=== PATIENT | male | born 1965 | race African-American/Black ===

== ENCOUNTER 2016-12-04 18:22 | Emergency (ER) | payer SELFPAY ==
[~2016-12-04] VITALS: Ht 180.3 cm; Wt 80.0 kg
[2016-12-04] MEDS ORDERED: FOLIC ACID 1 MG, THIAMINE HCL 100 MG, MVI, ADULT NO.1 10 ML in DEXTROSE 5% WATER 1,000 ML IV ONE ×4 (22:30)
[2016-12-04] MEDS ORDERED: KETOROLAC 30MG/ML VIAL IV ONE (22:30)
[2016-12-04 22:49] LABS: BASOPHILS % 1.1 % (0.0-2.0); EOSINOPHILS % 3.6 % (0.0-5.0); HEMOGLOBIN. 12.8 g/dL (14.0-18.0); LYMPHOCYTES % 47.4 % (20.0-50.0); MEAN CORPUSCULAR HEMOGLOBIN 30.5 pg (28.0-32.0); MEAN CORPUSCULAR VOLUME 92.5 fL (80.0-94.0); MEAN PLATELET VOLUME 6.9 fl (7.4-10.4); MONOCYTES % 9.8 % (2.0-8.0); NEUTROPHILS % 38.1 % (40.0-76.0); PLATELET 244 x1000/uL (130-400); RED BLOOD CELL COUNT 4.21 mill/uL (4.7-6.1); RED CELL DISTRIBUTION WIDTH 16.1 % (11.6-14.6); WHITE BLOOD COUNT 6.6 x1000/uL (4.5-11.0)
[2016-12-04 22:54] LABS: CHLORIDE 109 mEq/L (98-107); INDEX HEMOLYSI 1 (1-3); INDEX ICTERIC 1 (1-4); INDEX LIPEMIC 1 (1-3)
[2016-12-04 23:00] LABS: ALANINE AMINOTRANSFERASE 23 IU/L (13-61); ANION GAP 12; CALCIUM 8.2 mg/dL (8.5-10.1); CARBON DIOXIDE 29 mEq/L (21-32); ETHANOL BLOOD 288 mg/dL; UREA NITROGEN BLOOD 9 mg/dL (7-21); eGFR > 60 mL/min (>60)
[2016-12-05 00:37] LABS: CLARITY URINE CLEAR (CLEAR); COLOR URINE YELLOW (YELLOW); GLUCOSE URINE NEGATIVE (NEGATIVE); KETONES URINE NEGATIVE (NEGATIVE); LEUKOCYTE ESTERASE URINE NEGATIVE (NEGATIVE); NITRITE URINE NEGATIVE (NEGATIVE); OCCULT BLOOD URINE NEGATIVE (NEGATIVE); PH URINE 5.5 (4.5-8.0); PROTEIN URINE NEGATIVE (NEGATIVE); SPECIFIC GRAVITY URINE 1.011 (1.005-1.030); UROBILINOGEN URINE 0.2 E.U./dL (0.2-1.0)
[2016-12-05 01:03] LABS: *AMPHETAMINES SCREEN URINE NEGATIVE (NEGATIVE); *BARBITURATES SCREEN URINE NEGATIVE (NEGATIVE); *BENZODIAZEPINES SCREEN URINE NEGATIVE (NEGATIVE); *COCAINE SCREEN URINE NEGATIVE (NEGATIVE); CANNABINOID URINE SCREEN NEGATIVE (NEGATIVE); ECSTASY MDMA SCREEN URINE NEGATIVE (NEGATIVE); METHADONE URINE SCREEN NEGATIVE (NEGATIVE); OPIATES URINE SCREEN NEGATIVE (NEGATIVE); PHENCYCLIDINE URINE SCREEN NEGATIVE (NEGATIVE)
[2016-12-05 05:41] VITALS: BP 147/88
== END 2016-12-05 05:51 | disposition left against medical advice (07) ==
LOC: ER 18:23
DX: F10.120 Alcohol abuse with intoxication, uncomplicated (principal); M25.561 Pain in right knee; M54.5 Low back pain; Y92.480 Sidewalk as the place of occurrence of the external cause; W18.09XA Striking against other object with subsequent fall, initial encounter; Y93.89 Activity, other specified; Y99.8 Other external cause status; Y90.8 Blood alcohol level of 240 mg/100 ml or more
CPT/HCPCS: 36415; 72100; 73560; 80053; 80305; 81003; 85025; 96365; 96366; 96375; 99285; G0482; J1885; J3411; J3490; J7070; Z7610

== ENCOUNTER 2017-05-05 18:58 | Emergency (ER) | payer SELFPAY ==
[~2017-05-05] VITALS: Ht 177.8 cm; Wt 80.0 kg
[2017-05-05] MEDS ORDERED: FOLIC ACID 1 MG, THIAMINE HCL 100 MG, MVI, ADULT NO.1 10 ML in DEXTROSE 5% WATER 1,000 ML IV ONE ×4 (20:15)
[2017-05-05 20:55] LABS: CARBON DIOXIDE 28 mEq/L (21-32); CHLORIDE 107 mEq/L (98-107)
[2017-05-05 20:56] LABS: BASOPHILS % 1.2 % (0.0-2.0); EOSINOPHILS % 4.1 % (0.0-5.0); HEMATOCRIT. 39.6 % (42.0-52.0); HEMOGLOBIN. 13.4 g/dL (14.0-18.0); LYMPHOCYTES % 44.3 % (20.0-50.0); MEAN CORPUSCULAR HEMOGLOBIN 30.1 pg (28.0-32.0); MEAN CORPUSCULAR VOLUME 88.9 fL (80.0-94.0); MEAN PLATELET VOLUME 7.3 fl (7.4-10.4); MONOCYTES % 7.1 % (2.0-8.0); NEUTROPHILS % 43.3 % (40.0-76.0); PLATELET 234 x1000/uL (130-400); RED BLOOD CELL COUNT 4.45 mill/uL (4.7-6.1); RED CELL DISTRIBUTION WIDTH 15.1 % (11.6-14.6)
[2017-05-05 20:57] LABS: ETHANOL BLOOD 289 mg/dL
[2017-05-05] MEDS ORDERED: KETOROLAC 30MG/ML VIAL IV ONE (23:30)
[2017-05-06 01:15] VITALS: BP 111/69
== END 2017-05-06 01:15 | disposition home or self-care (01) ==
LOC: ER 21:11
DX: S10.93XA Contusion of unspecified part of neck, initial encounter (principal); S00.93XA Contusion of unspecified part of head, initial encounter; F10.129 Alcohol abuse with intoxication, unspecified; Y08.89XA Assault by other specified means, initial encounter; Y93.89 Activity, other specified; Y92.89 Other specified places as the place of occurrence of the external cause; Y99.8 Other external cause status
CPT/HCPCS: 36415; 70450; 71111; 72125; 80048; 85025; 96365; 96375; 99285; G0482; J1885; J3411; J3490; J7030; J7070; Z7610

== ENCOUNTER 2017-11-13 22:24 | Emergency (ER) | payer MEDICAID ==
[~2017-11-13] VITALS: Ht 180.3 cm; Wt 86.0 kg
[2017-11-14] MEDS ORDERED: SODIUM CHLORIDE 0.9% 1,000 ML IV ONE (01:26)
[2017-11-14 01:59] LABS: BASOPHILS % 0.9 % (0.0-2.0); EOSINOPHILS % 2.3 % (0.0-5.0); HEMATOCRIT. 39.7 % (42.0-52.0); HEMOGLOBIN. 13.2 g/dL (14.0-18.0); MEAN CORPUSCULAR HEMOGLOBIN 30.7 pg (28.0-32.0); MEAN CORPUSCULAR VOLUME 92.6 fL (80.0-94.0); MEAN PLATELET VOLUME 7.3 fl (7.4-10.4); MONOCYTES % 7.2 % (2.0-8.0); NEUTROPHILS % 50.6 % (40.0-76.0); PLATELET 236 x1000/uL (130-400); RED BLOOD CELL COUNT 4.29 mill/uL (4.7-6.1); RED CELL DISTRIBUTION WIDTH 15.9 % (11.6-14.6)
[2017-11-14 02:09] LABS: CHLORIDE 106 mEq/L (98-107); ETHANOL BLOOD 209 mg/dL
[2017-11-14 04:00] LABS: CLARITY URINE CLEAR (CLEAR); COLOR URINE YELLOW (YELLOW); KETONES URINE NEGATIVE (NEGATIVE); LEUKOCYTE ESTERASE URINE NEGATIVE (NEGATIVE); NITRITE URINE NEGATIVE (NEGATIVE); OCCULT BLOOD URINE NEGATIVE (NEGATIVE); PH URINE 5.5 (4.5-8.0); PROTEIN URINE NEGATIVE (NEGATIVE); SPECIFIC GRAVITY URINE 1.019 (1.005-1.030); UROBILINOGEN URINE 0.2 E.U./dL (0.2-1.0)
[2017-11-14 04:19] LABS: *AMPHETAMINES SCREEN URINE NEGATIVE (NEGATIVE); *BARBITURATES SCREEN URINE NEGATIVE (NEGATIVE); *BENZODIAZEPINES SCREEN URINE NEGATIVE (NEGATIVE); *COCAINE SCREEN URINE PRESUMTIVE POSITIVE (NEGATIVE); CANNABINOID URINE SCREEN NEGATIVE (NEGATIVE); METHADONE URINE SCREEN NEGATIVE (NEGATIVE); OPIATES URINE SCREEN NEGATIVE (NEGATIVE); PHENCYCLIDINE URINE SCREEN NEGATIVE (NEGATIVE)
[2017-11-14 08:37] VITALS: BP 145/89
[2017-12-07] MEDS ORDERED: MESA0.37 PO (15:53)
== END 2017-11-14 08:39 | disposition home or self-care (01) ==
LOC: ER 22:49 → MERGE 22:49 → ER 11-14 08:39 → CANBEDREQ 11-14 16:20
DX: T51.0X1A Toxic effect of ethanol, accidental (unintentional), initial encounter (principal); S16.1XXA Strain of muscle, fascia and tendon at neck level, initial encounter; S39.012A Strain of muscle, fascia and tendon of lower back, initial encounter; R41.0 Disorientation, unspecified; Y90.7 Blood alcohol level of 200-239 mg/100 ml; X58.XXXA Exposure to other specified factors, initial encounter; Y93.89 Activity, other specified; Y92.488 Other paved roadways as the place of occurrence of the external cause
CPT/HCPCS: 36415; 70450; 71045; 72125; 72131; 73502; 80053; 80305; 81003; 83605; 83690; 83880; 84484; 85025; 85610; 96360; 99285; G0482; J7030; Z7610

== ENCOUNTER 2017-12-16 16:29 | Emergency (ER) | payer SELFPAY ==
[~2017-12-16] VITALS: Ht 185.4 cm; Wt 77.0 kg
[2017-12-16 18:51] VITALS: BP 139/82
[2017-12-16 18:53] LABS: EOSINOPHILS % 1.8 % (0.0-5.0); HEMATOCRIT. 30.7 % (42.0-52.0); HEMOGLOBIN. 10.6 g/dL (14.0-18.0); MEAN CORPUSCULAR HEMOGLOBIN 31.4 pg (28.0-32.0); MEAN CORPUSCULAR VOLUME 90.8 fL (80.0-94.0); MONOCYTES % 12.5 % (2.0-8.0); NEUTROPHILS % 40.7 % (40.0-76.0); PLATELET 384 x1000/uL (130-400); RED BLOOD CELL COUNT 3.38 mill/uL (4.7-6.1); RED CELL DISTRIBUTION WIDTH 15.8 % (11.6-14.6)
[2017-12-16 18:56] LABS: CHLORIDE 107 mEq/L (98-107)
[2017-12-16 18:57] LABS: INR 1.1; PROTHROMBIN TIME 11.5 sec (9.4-11.6)
== END 2017-12-16 19:53 | disposition home or self-care (01) ==
LOC: ER 16:29
DX: R60.0 Localized edema (principal); I10 Essential (primary) hypertension; F17.200 Nicotine dependence, unspecified, uncomplicated
CPT/HCPCS: 36415; 71045; 80053; 83880; 84484; 85025; 85610; 93005; 99285; Z7610

== ENCOUNTER 2018-03-03 12:55 | Emergency (ER) | payer MEDICAID ==
[~2018-03-03] VITALS: Ht 182.9 cm; Wt 77.0 kg
[~2018-03-03 12:55] MED LIST: MESA0.37 PO
[2018-03-03] MEDS ORDERED: MORPHINE SULFATE 4 MG/ML CPJ (NOT FOR IM USE) IV STA (14:19)
[2018-03-03] MEDS ORDERED: ONDANSETRON HCL 4MG/2ML VIAL IV STA (14:19)
[2018-03-03] MEDS ORDERED: SODIUM CHLORIDE 0.9% 1,000 ML IV ONE (14:19)
[2018-03-03] MEDS ORDERED: KETOROLAC 30MG/ML VIAL IV ONE (15:30)
[2018-03-03] MEDS ORDERED: DIAZEPAM 5 MG/ML 2ML CPJ IV ONE (15:30)
[2018-03-03 15:51] LABS: BASOPHILS % 1.3 % (0.0-2.0); EOSINOPHILS % 6.1 % (0.0-5.0); HEMATOCRIT. 37.9 % (42.0-52.0); HEMOGLOBIN. 13.1 g/dL (14.0-18.0); LYMPHOCYTES % 45.7 % (20.0-50.0); MEAN CORPUSCULAR HEMOGLOBIN 31.5 pg (28.0-32.0); MEAN CORPUSCULAR VOLUME 91.3 fL (80.0-94.0); MEAN PLATELET VOLUME 6.9 fl (7.4-10.4); MONOCYTES % 5.9 % (2.0-8.0); PLATELET 169 x1000/uL (130-400); RED BLOOD CELL COUNT 4.15 mill/uL (4.7-6.1); RED CELL DISTRIBUTION WIDTH 15.9 % (11.6-14.6)
[2018-03-03 15:55] LABS: CHLORIDE 107 mEq/L (98-107)
[2018-03-03 16:10] LABS: ETHANOL BLOOD 321 mg/dL
[2018-03-03] MEDS ORDERED: CYCLOBENZAPRINE 10MG TABLET PO ONE (16:15)
[2018-03-03 18:21] VITALS: BP 140/81
== END 2018-03-03 18:33 | disposition home or self-care (01) ==
LOC: ER 12:55
DX: M54.42 Lumbago with sciatica, left side (principal); M62.830 Muscle spasm of back; F10.20 Alcohol dependence, uncomplicated; E11.9 Type 2 diabetes mellitus without complications; I10 Essential (primary) hypertension
CPT/HCPCS: 36415; 72100; 73502; 80053; 85025; 96374; 96375; 99285; G0482; J1885; J2270; J2405; J7030; Z7610

== ENCOUNTER 2018-06-11 09:55 | Emergency (ER) | payer MEDICAID ==
[~2018-06-11] VITALS: Ht 177.8 cm; Wt 80.0 kg
[2018-06-11 15:50] VITALS: BP 128/68
== END 2018-06-11 15:51 | disposition left against medical advice (07) ==
LOC: ER 10:03
DX: F10.229 Alcohol dependence with intoxication, unspecified (principal); E11.9 Type 2 diabetes mellitus without complications; I10 Essential (primary) hypertension; Z79.899 Other long term (current) drug therapy; Y90.9 Presence of alcohol in blood, level not specified
CPT/HCPCS: 82962; 99283

== ENCOUNTER 2018-10-08 08:54 | Emergency (ER) | payer MEDICAID ==
[~2018-10-08] VITALS: Ht 185.4 cm; Wt 79.0 kg
[2018-10-08] MEDS ORDERED: KETOROLAC 60MG/2ML VIAL IM ONE (10:45)
[2018-10-08 11:00] VITALS: BP 153/82
== END 2018-10-08 11:11 | disposition home or self-care (01) ==
LOC: ER 08:54
DX: M54.41 Lumbago with sciatica, right side (principal); F17.200 Nicotine dependence, unspecified, uncomplicated; E11.9 Type 2 diabetes mellitus without complications; I10 Essential (primary) hypertension; F10.20 Alcohol dependence, uncomplicated; Y90.8 Blood alcohol level of 240 mg/100 ml or more; Z98.890 Other specified postprocedural states
CPT/HCPCS: 96372; 99283; J1885

== ENCOUNTER 2018-11-19 11:53 | Inpatient (IN) | payer MEDICAID ==
[~2018-11-19] VITALS: Ht 185.4 cm; Wt 81.6 kg
[2018-11-19] MEDS ORDERED: MORPHINE SULFATE 4 MG/ML CPJ (NOT FOR IM USE) IV STA (12:20)
[2018-11-19] MEDS ORDERED: ONDANSETRON HCL 4MG/2ML INJ IV STA (12:20)
[2018-11-19 13:06] LABS: BASOPHILS % 1.1 % (0.0-2.0); EOSINOPHILS % 2.4 % (0.0-5.0); HEMATOCRIT. 38.3 % (42.0-52.0); HEMOGLOBIN. 12.5 g/dL (14.0-18.0); LYMPHOCYTES % 35.2 % (20.0-50.0); MEAN PLATELET VOLUME 8.7 fl (7.4-10.4); MONOCYTES % 6.4 % (2.0-8.0); NEUTROPHILS % 54.9 % (40.0-76.0); PLATELET 58 x1000/uL (130-400); RED BLOOD CELL COUNT 4.17 mill/uL (4.7-6.1)
[2018-11-19 13:07] LABS: CHLORIDE 104 mEq/L (98-107)
[2018-11-19 13:14] LABS: ETHANOL BLOOD 214 mg/dL
[2018-11-19 13:18] LABS: CREATINE KINASE 281 IU/L (39-308)
[2018-11-19] MEDS ORDERED: SODIUM CHLORIDE 0.9% 1000ML BAG (SEPSIS BOLUS) IV ONE (13:30)
[2018-11-19] MEDS ORDERED: VANCOMYCIN 1 G PREMIX 200 ML IV ONE (13:30)
[2018-11-19] MEDS ORDERED: CEFTRIAXONE 1 G PREMIX 50 ML IV ONE ×2 (13:30→13:45)
[2018-11-19] MEDS ORDERED: ACETAMINOPHEN 325MG TABLET PO PRN (17:00)
[2018-11-19] MEDS ORDERED: CLONIDINE 0.1MG TABLET PO PRN (17:00)
[2018-11-19] MEDS ORDERED: ONDANSETRON HCL 4MG/2ML INJ IV PRN (17:00)
[2018-11-19] MEDS ORDERED: FOLIC ACID 1 MG, THIAMINE HCL 100 MG, MVI, ADULT NO.1 10 ML in DEXTROSE 5% WATER 1,000 ML IV ONE ×4 (20:00)
[2018-11-19] MEDS ORDERED: LORAZEPAM 2MG/ML CPJ IV PRN (20:30)
[2018-11-19] MEDS ORDERED: MORPHINE SULFATE 4 MG/ML CPJ (NOT FOR IM USE) IV PRN (20:30)
[2018-11-19 20:34] LABS: HEPATITIS B SURFACE ANTIGEN NEGATIVE
[2018-11-19 21:03] LABS: HEPATITIS A AB IGM NEGATIVE (NEGATIVE)
[2018-11-19] MEDS ORDERED: CHLORDIAZEPOXIDE 25MG CAPSULE PO SCH (22:00)
[2018-11-20] MEDS: HYDROCODONE/ACETAMINOPHEN 5/325MG TABLET PO PRN ×5 (01:06→21:14)
[2018-11-20] MEDS: CHLORDIAZEPOXIDE 25MG CAPSULE PO SCH ×4 (01:06→21:08)
[2018-11-20 05:13] LABS: BASOPHILS % 1.2 % (0.0-2.0); EOSINOPHILS % 3.7 % (0.0-5.0); HEMATOCRIT. 38.9 % (42.0-52.0); HEMOGLOBIN. 13.2 g/dL (14.0-18.0); LYMPHOCYTES % 28.9 % (20.0-50.0); MEAN CORPUSCULAR HEMOGLOBIN 30.9 pg (28.0-32.0); MEAN PLATELET VOLUME 7.5 fl (7.4-10.4); MONOCYTES % 11.7 % (2.0-8.0); NEUTROPHILS % 54.5 % (40.0-76.0); PLATELET 210 x1000/uL (130-400); RED BLOOD CELL COUNT 4.27 mill/uL (4.7-6.1); RED CELL DISTRIBUTION WIDTH 15.6 % (11.6-14.6)
[2018-11-20 05:19] LABS: CHLORIDE 100 mEq/L (98-107)
[2018-11-20 08:30] VITALS: BP 163/83
[2018-11-20 08:31] VITALS: BP 163/83
[2018-11-20] MEDS: LEVOTHYROXINE SODIUM 50MCG TABLET PO SCH (09:48)
[2018-11-20] MEDS ORDERED: HYDR12.518 PO (09:55)
[2018-11-20] MEDS ORDERED: PNEUMOCOCCAL 23-VAL P-SAC VAC 0.5 ML IM ONE (12:00)
[2018-11-20] MEDS ORDERED: SUMATRIPTAN SUCCINATE 6MG/0.5ML VIAL SUBCUT SCH (15:00)
[2018-11-20 16:00] VITALS: BP 139/92
[2018-11-20 19:32] LABS: CLARITY URINE CLEAR (CLEAR); COLOR URINE YELLOW (YELLOW); KETONES URINE NEGATIVE (NEGATIVE); LEUKOCYTE ESTERASE URINE NEGATIVE (NEGATIVE); NITRITE URINE NEGATIVE (NEGATIVE); OCCULT BLOOD URINE NEGATIVE (NEGATIVE); PROTEIN URINE NEGATIVE (NEGATIVE); SPECIFIC GRAVITY URINE 1.011 (1.005-1.030); UROBILINOGEN URINE 0.2 E.U./dL (0.2-1.0)
[2018-11-20 20:00] VITALS: BP 136/90
[2018-11-20 20:02] LABS: *AMPHETAMINES SCREEN URINE NEGATIVE (NEGATIVE); *BARBITURATES SCREEN URINE NEGATIVE (NEGATIVE); CANNABINOID URINE SCREEN NEGATIVE (NEGATIVE); PHENCYCLIDINE URINE SCREEN NEGATIVE (NEGATIVE)
[2018-11-20 20:03] LABS: *BENZODIAZEPINES SCREEN URINE NEGATIVE (NEGATIVE); *COCAINE SCREEN URINE NEGATIVE (NEGATIVE); METHADONE URINE SCREEN NEGATIVE (NEGATIVE); OPIATES URINE SCREEN PRESUMTIVE POSITIVE (NEGATIVE)
[2018-11-20] MEDS: AMLODIPINE 5MG TABLET PO SCH (21:08)
[2018-11-21] VITALS: BP 132/82
[2018-11-21 04:00] VITALS: BP 138/89
[2018-11-21] MEDS: CHLORDIAZEPOXIDE 25MG CAPSULE PO SCH ×2 (05:13→14:25)
[2018-11-21] MEDS: LEVOTHYROXINE SODIUM 50MCG TABLET PO SCH (05:13)
[2018-11-21 08:00] VITALS: BP 122/91
[2018-11-21] MEDS: AMLODIPINE 5MG TABLET PO SCH (08:43)
[2018-11-21] MEDS: HYDROCODONE/ACETAMINOPHEN 5/325MG TABLET PO PRN ×2 (08:44→15:30)
[2018-11-21] MEDS ORDERED: LIDOCAINE HCL 1% 20ML VIAL (Pyxis) INJ ONE (08:52)
[2018-11-21 12:00] VITALS: BP 142/78
[2018-11-21 16:00] VITALS: BP 140/83
[2018-11-21 18:04] VITALS: BP 140/83
== END 2018-11-21 18:45 | disposition home health service (06) | DRG 775 ==
LOC: ER 11:53 → 5WST 14:24 → EDBEDREQ 14:27 → ENRESERV 11-20 07:09
PROVIDERS: ADMIT Internal Medicine; ATTEND Internal Medicine
DX: F10.129 Alcohol abuse with intoxication, unspecified (principal); D69.6 Thrombocytopenia, unspecified; R65.10 Systemic inflammatory response syndrome (SIRS) of non-infectious origin without acute organ dysfunction; K50.90 Crohn's disease, unspecified, without complications; D64.9 Anemia, unspecified; E11.9 Type 2 diabetes mellitus without complications; E03.9 Hypothyroidism, unspecified; Y90.7 Blood alcohol level of 200-239 mg/100 ml; F17.200 Nicotine dependence, unspecified, uncomplicated; I10 Essential (primary) hypertension; Z82.49 Family history of ischemic heart disease and other diseases of the circulatory system; Z71.6 Tobacco abuse counseling; Z71.41 Alcohol abuse counseling and surveillance of alcoholic
CPT/HCPCS: 36415; 71045; 73562; 80048; 80061; 80305; 80320; 82140; 82550; 83036; 83605; 83880; 84443; 84484; 86705; 86709; 86803; 87340; 90732; 93005; 93306; 96374; 97116; 97162; 99285; J0696; J2270; J2405; J3030; J3370; J3411; J3490; J7070; G0480

== ENCOUNTER 2019-02-08 13:13 | Emergency (ER) | payer SELFPAY ==
[~2019-02-08] VITALS: Ht 175.3 cm; Wt 90.0 kg
[~2019-02-08 13:13] MED LIST changes: +HYDR12.518 PO; -MESA0.37 PO
[2019-02-08 14:37] LABS: EOSINOPHILS % 4.3 % (0.0-5.0); HEMATOCRIT. 38.6 % (42.0-52.0); HEMOGLOBIN. 13.3 g/dL (14.0-18.0); MEAN CORPUSCULAR HEMOGLOBIN 31.3 pg (28.0-32.0); MEAN CORPUSCULAR VOLUME 91.1 fL (80.0-94.0); MONOCYTES % 7.2 % (2.0-8.0); NEUTROPHILS % 55.5 % (40.0-76.0); PLATELET 204 x1000/uL (130-400); RED BLOOD CELL COUNT 4.24 mill/uL (4.7-6.1); RED CELL DISTRIBUTION WIDTH 14.8 % (11.6-14.6)
[2019-02-08] MEDS ORDERED: SODIUM CHLORIDE 0.9% 1,000 ML IV ONE ×2 (14:40→16:18)
[2019-02-08 14:45] LABS: CHLORIDE 108 mEq/L (98-107)
[2019-02-08] MEDS ORDERED: KETOROLAC 30MG/ML VIAL IV ONE (14:45)
[2019-02-08 14:49] LABS: ETHANOL BLOOD 183 mg/dL
[2019-02-08 17:14] LABS: PARTIAL THROMBOPLASTIN TIME 29.9 sec (23.4-31.0); PROTHROMBIN TIME 10.1 sec (9.6-11.0)
[2019-02-08 17:57] VITALS: BP 122/78
== END 2019-02-08 18:21 | disposition home or self-care (01) ==
LOC: ER 13:13
DX: R07.89 Other chest pain (principal); I10 Essential (primary) hypertension; F16.10 Hallucinogen abuse, uncomplicated; F19.10 Other psychoactive substance abuse, uncomplicated
CPT/HCPCS: 36415; 71045; 80053; 80320; 83880; 84484; 85025; 85610; 85730; 93005; 96374; 99284; J1885; J7030; G0480

== ENCOUNTER 2019-02-18 11:30 | Emergency (ER) | payer SELFPAY ==
[~2019-02-18] VITALS: Ht 182.9 cm; Wt 73.0 kg
[2019-02-18] MEDS ORDERED: IBUPROFEN 600MG TABLET PO STA (11:51)
[2019-02-18 12:04] LABS: BASOPHILS % 0.9 % (0.0-2.0); EOSINOPHILS % 4.6 % (0.0-5.0); HEMATOCRIT. 40.5 % (42.0-52.0); HEMOGLOBIN. 13.7 g/dL (14.0-18.0); LYMPHOCYTES % 31.9 % (20.0-50.0); MEAN CORPUSCULAR HEMOGLOBIN 31.1 pg (28.0-32.0); MEAN CORPUSCULAR VOLUME 91.8 fL (80.0-94.0); MEAN PLATELET VOLUME 7.5 fl (7.4-10.4); MONOCYTES % 11.1 % (2.0-8.0); NEUTROPHILS % 51.5 % (40.0-76.0); PLATELET 193 x1000/uL (130-400); RED BLOOD CELL COUNT 4.41 mill/uL (4.7-6.1); RED CELL DISTRIBUTION WIDTH 14.9 % (11.6-14.6)
[2019-02-18 12:10] LABS: CHLORIDE 103 mEq/L (98-107)
[2019-02-18 12:13] LABS: ETHANOL BLOOD 218 mg/dL
[2019-02-19 03:26] LABS: *AMPHETAMINES SCREEN URINE PRESUMTIVE POSITIVE (NEGATIVE); *BARBITURATES SCREEN URINE NEGATIVE (NEGATIVE); *BENZODIAZEPINES SCREEN URINE NEGATIVE (NEGATIVE); *COCAINE SCREEN URINE NEGATIVE (NEGATIVE); METHADONE URINE SCREEN NEGATIVE (NEGATIVE); OPIATES URINE SCREEN NEGATIVE (NEGATIVE)
[2019-02-19 03:27] LABS: CANNABINOID URINE SCREEN NEGATIVE (NEGATIVE); PHENCYCLIDINE URINE SCREEN NEGATIVE (NEGATIVE)
[2019-02-19] MEDS ORDERED: KETOROLAC 15MG/ML VIAL IM NR (05:30)
[2019-02-19] MEDS ORDERED: KETOROLAC 15MG/ML VIAL IV NR (06:30)
[2019-02-19 06:48] VITALS: BP 134/86
== END 2019-02-19 06:49 | disposition home or self-care (01) ==
LOC: ER 11:30
DX: R07.89 Other chest pain (principal); T51.0X1A Toxic effect of ethanol, accidental (unintentional), initial encounter; Y92.89 Other specified places as the place of occurrence of the external cause; I10 Essential (primary) hypertension
CPT/HCPCS: 36415; 71045; 80053; 80305; 80320; 83690; 84484; 85025; 93005; 96372; 99284; J1885; Z7610; G0480

== ENCOUNTER → 2019-06-04 | Emergency (ER) | payer MEDICAID ==
[~2019-06-04] VITALS: Ht 185.4 cm; Wt 82.0 kg
[~2019-06-04] MED LIST changes: +DIAZEPAM 5 MG TABLET PO ONE; +KETOROLAC 60MG/2ML VIAL IM ONE
[2019-06-04 18:28] VITALS: BP 122/78
== END ==
LOC: ER 16:34
DX: M54.5 Low back pain (principal); F17.200 Nicotine dependence, unspecified, uncomplicated; I10 Essential (primary) hypertension; Z98.890 Other specified postprocedural states
CPT/HCPCS: 96372; 99283; J1885

== ENCOUNTER 2019-08-06 01:31 | Emergency (ER) | payer MEDICAID ==
[~2019-08-06] VITALS: Ht 188 cm; Wt 89.0 kg
[~2019-08-06 01:31] MED LIST changes: -DIAZEPAM 5 MG TABLET PO ONE; -KETOROLAC 60MG/2ML VIAL IM ONE
[2019-08-06] MEDS ORDERED: KETOROLAC 60MG/2ML VIAL IM ONE (05:00)
[2019-08-06 05:25] VITALS: BP 132/78
== END 2019-08-06 05:26 | disposition home or self-care (01) ==
LOC: ER 02:28
DX: M79.604 Pain in right leg (principal); G89.29 Other chronic pain; Z87.828 Personal history of other (healed) physical injury and trauma
CPT/HCPCS: 96372; 99283; J1885

== ENCOUNTER 2021-10-13 17:02 | Emergency (ER) | payer OTHER ==
[~2021-10-13] VITALS: Ht 182.9 cm; Wt 81.6 kg
[2021-10-13] MEDS ORDERED: KETOROLAC 60MG/2ML VIAL IM ONE (18:00)
[2021-10-13] MEDS ORDERED: HYDROCODONE/ACETAMINOPHEN 5/325MG TABLET PO ONE (18:00)
[2021-10-13] MEDS ORDERED: TRAM50TA3 MT (22:56)
[2021-10-13] MEDS ORDERED: IBUP-2028 MT (22:56)
[2021-10-13 23:01] VITALS: BP 138/78
== END 2021-10-14 10:36 | disposition home or self-care (01) ==
LOC: ER 17:02
DX: M54.2 Cervicalgia (principal); R20.0 Anesthesia of skin; Z98.890 Other specified postprocedural states; I10 Essential (primary) hypertension; G40.909 Epilepsy, unspecified, not intractable, without status epilepticus; Z79.899 Other long term (current) drug therapy
CPT/HCPCS: 72141; 72146; 96372; 99284; J1885

== ENCOUNTER 2021-12-20 05:51 | Emergency (ER) | payer MEDICAID, OTHER ==
[~2021-12-20] VITALS: Ht 180.3 cm; Wt 76.5 kg
[~2021-12-20 05:51] MED LIST changes: +IBUP-2028 MT; +TRAM50TA3 MT
[2021-12-20 06:11] VITALS: BP 139/86
[2021-12-20] MEDS ORDERED: IBUP-2028 MT (18:14)
[2021-12-20] MEDS ORDERED: HYDR-4001 MT (18:14)
== END 2021-12-20 10:16 | disposition left against medical advice (07) ==
LOC: ER 05:51
DX: Z53.21 Procedure and treatment not carried out due to patient leaving prior to being seen by health care provider (principal)

== ENCOUNTER 2021-12-20 16:32 | Emergency (ER) | payer MEDICAID ==
[~2021-12-20] VITALS: Ht 180.3 cm; Wt 78.0 kg
[2021-12-20] MEDS ORDERED: KETOROLAC 60MG/2ML VIAL IM ONE (18:00)
[2021-12-20] MEDS ORDERED: HYDR-4001 MT (18:14)
[2021-12-20] MEDS ORDERED: IBUP-2028 MT (18:14)
[2021-12-20 18:32] VITALS: BP 132/79
== END 2021-12-20 18:46 | disposition home or self-care (01) ==
LOC: ER 16:32
DX: M54.50 Low back pain, unspecified (principal); G89.29 Other chronic pain; R20.0 Anesthesia of skin; Z98.890 Other specified postprocedural states; Z79.899 Other long term (current) drug therapy
CPT/HCPCS: 72125; 72131; 96372; 99284; J1885

== ENCOUNTER 2022-02-02 19:11 | Emergency (ER) | payer MEDICAID ==
[~2022-02-02] VITALS: Ht 180.3 cm; Wt 74.0 kg
[~2022-02-02 19:11] MED LIST changes: +HYDR-4001 MT
[2022-02-02] MEDS ORDERED: KETOROLAC 30MG/ML VIAL IV STA (19:41)
[2022-02-02] MEDS ORDERED: SODIUM CHLORIDE 0.9% 1,000 ML IV ONE (19:45)
[2022-02-02 20:01] LABS: BASOPHILS % 0.9 % (0.0-2.0); EOSINOPHILS % 1.3 % (0.0-5.0); HEMATOCRIT. 35.7 % (42.0-52.0); LYMPHOCYTES % 32.6 % (20.0-50.0); MEAN CORPUSCULAR HEMOGLOBIN 30.2 pg (28.0-32.0); MEAN CORPUSCULAR VOLUME 89.8 fL (80.0-94.0); MEAN PLATELET VOLUME 7.1 fl (7.4-10.4); MONOCYTES % 12.7 % (2.0-8.0); NEUTROPHILS % 52.5 % (40.0-76.0); PLATELET 228 x1000/uL (130-400); RED BLOOD CELL COUNT 3.97 mill/uL (4.7-6.1); RED CELL DISTRIBUTION WIDTH 16.9 % (11.6-14.6)
[2022-02-02 20:11] LABS: CHLORIDE 102 mEq/L (98-107)
[2022-02-02 20:23] LABS: ETHANOL BLOOD 289 mg/dL
[2022-02-02] MEDS ORDERED: POTASSIUM CHLORIDE 20MEQ TABLET SR PO ONE (20:45)
[2022-02-02] MEDS ORDERED: KETOROLAC 30MG/ML VIAL IV NR (22:15)
[2022-02-02] MEDS ORDERED: IBUP-2028 MT (23:02)
[2022-02-02 23:34] LABS: *AMPHETAMINES SCREEN URINE NEGATIVE (NEGATIVE); *BARBITURATES SCREEN URINE NEGATIVE (NEGATIVE); *BENZODIAZEPINES SCREEN URINE NEGATIVE (NEGATIVE); *COCAINE SCREEN URINE NEGATIVE (NEGATIVE); CANNABINOID URINE SCREEN NEGATIVE (NEGATIVE); METHADONE URINE SCREEN NEGATIVE (NEGATIVE); OPIATES URINE SCREEN NEGATIVE (NEGATIVE); PHENCYCLIDINE URINE SCREEN NEGATIVE (NEGATIVE)
[2022-02-03 01:23] VITALS: BP 100/64
== END 2022-02-03 02:13 | disposition home or self-care (01) ==
LOC: ER 19:11
DX: M54.59 Other low back pain (principal); S00.81XA Abrasion of other part of head, initial encounter; F10.129 Alcohol abuse with intoxication, unspecified; Y90.8 Blood alcohol level of 240 mg/100 ml or more; W19.XXXA Unspecified fall, initial encounter; Y93.9 Activity, unspecified; Y92.9 Unspecified place or not applicable; I25.9 Chronic ischemic heart disease, unspecified; D64.9 Anemia, unspecified; I10 Essential (primary) hypertension
CPT/HCPCS: 36415; 70450; 72125; 72131; 80053; 80305; 80320; 85025; 99284; J1885; J7030; G0480

== ENCOUNTER 2022-04-13 20:46 | Emergency (ER) | payer MEDICAID ==
[~2022-04-13] VITALS: Ht 180.3 cm; Wt 77.9 kg
[2022-04-13 20:55] VITALS: BP 129/80
[2022-04-13 23:03] LABS: BASOPHILS % 1.2 % (0.0-2.0); EOSINOPHILS % 5.6 % (0.0-5.0); HEMATOCRIT. 42.2 % (42.0-52.0); HEMOGLOBIN. 14.1 g/dL (14.0-18.0); LYMPHOCYTES % 48.3 % (20.0-50.0); MEAN CORPUSCULAR HEMOGLOBIN 31.1 pg (28.0-32.0); MEAN CORPUSCULAR VOLUME 93.4 fL (80.0-94.0); MEAN PLATELET VOLUME 7.5 fl (7.4-10.4); MONOCYTES % 7.2 % (2.0-8.0); NEUTROPHILS % 37.7 % (40.0-76.0); PLATELET 223 x1000/uL (130-400); RED BLOOD CELL COUNT 4.52 mill/uL (4.7-6.1); RED CELL DISTRIBUTION WIDTH 17.6 % (11.6-14.6)
[2022-04-13 23:14] LABS: CHLORIDE 109 mEq/L (98-107)
[2022-04-13 23:47] LABS: VITAMIN B12 SERUM 275 pg/mL (211-911)
== END 2022-04-14 02:37 | disposition home or self-care (01) ==
LOC: ER 20:46
DX: A15.9 Respiratory tuberculosis unspecified (principal); G89.29 Other chronic pain; M79.18 Myalgia, other site; R20.0 Anesthesia of skin; I10 Essential (primary) hypertension
CPT/HCPCS: 36415; 71045; 80053; 82607; 83880; 84484; 85025; 93005; 99285